=== PATIENT | female | born 1990 | race Caucasian/White ===

== ENCOUNTER 2017-03-15 15:07 | Emergency (ER) | payer SELFPAY ==
[~2017-03-15 15:07] MED LIST: ALPR0.5T8 PO; HYDR-4446 PO
--- NOTE | 2017-03-15 15:37 | NUR ---
PATIENT LWBS PRIOR TO TRIAGE.
== END 2017-03-15 15:37 | disposition left against medical advice (07) ==
LOC: MED 15:07
DX: R68.89 Other general symptoms and signs (principal); Z53.21 Procedure and treatment not carried out due to patient leaving prior to being seen by health care provider

== ENCOUNTER 2017-03-15 15:43 | Emergency (ER) | payer SELFPAY ==
--- NOTE | 2017-03-15 16:16 | NUR ---
PATIENT LWBS AGAIN
== END 2017-03-15 16:16 | disposition left against medical advice (07) ==
LOC: MED 15:43
DX: F19.20 Other psychoactive substance dependence, uncomplicated (principal); Z53.21 Procedure and treatment not carried out due to patient leaving prior to being seen by health care provider

== ENCOUNTER 2017-11-29 13:09 | Emergency (ER) | payer SELFPAY ==
[~2017-11-29] VITALS: Ht 154.9 cm; Wt 50.8 kg
[~2017-11-29 13:09] MED LIST changes: +ACET-8386 PO; -HYDR-4446 PO
[2017-11-29 13:19] VITALS: BP 118/71
--- NOTE | 2017-11-29 13:23 | NUR ---
PT AMBULATED TO [facility]
--- NOTE | 2017-11-29 13:30 | NUR ---
27/F presents to ED c/o painful urination and lower abd cramping starting this morning. Denies N/V/D. Pt states she started her menstrual cycle today. VSS.
--- NOTE | 2017-11-29 14:01 | NUR ---
Patient being evaluated by Dr. Hidalgo in chair C.
[2017-11-29] MEDS ORDERED: traMADol 50 MG TAB PO ONE (14:05)
--- NOTE | 2017-11-29 14:20 | NUR ---
Pt is requesting to get a prescription for [place]. Pt states "I've taken Tramadol before and it doesn't help." Dr. Hidalgo made aware. No prescription for [place] will be given to the patient at this time. Patient made aware and verbalized understanding.
[2017-11-29 14:22] VITALS: BP 118/71
--- NOTE | 2017-11-29 14:22 | NUR ---
Patient discharged with v/s stable. Written and verbal after care instructions given and explained. Patient alert, oriented and verbalized understanding of instructions. Ambulatory with steady gait. All questions addressed prior to discharge. ID band removed. Patient advised to follow up with PMD. Rx of Tramadol 50mg and Cephalexin 500mg given. Patient educated on indication of medication including possible reaction and side effects. Opportunity to ask questions provided and answered.
== END 2017-11-29 14:22 | disposition home or self-care (01) ==
LOC: MED 13:09
DX: N39.0 Urinary tract infection, site not specified (principal); N94.6 Dysmenorrhea, unspecified; Z79.899 Other long term (current) drug therapy; Z88.8 Allergy status to other drugs, medicaments and biological substances
CPT/HCPCS: 81002; 81025; 99283

== ENCOUNTER 2021-02-04 01:39 | Inpatient (IN) | payer OTHER, SELFPAY ==
[~2021-02-04] VITALS: Ht 154.9 cm; Wt 54.4 kg
[2021-02-04 01:41] VITALS: BP 82/58
--- NOTE | 2021-02-04 01:52 | NUR ---
Patient ambualted to bed 12 with steady gait.
--- NOTE | 2021-02-04 02:05 | NUR ---
30 YO/F BIB SELF, ACCOMPANIED BY , W C/O ABDOMINAL/PELVIC PAIN LEVEL 10/10 THAT FEELS LIKE SHE IS "BEING CUT" AND VOMITING X 3 MONTHS. PATIENT REPORTS BLOOD +CLOTS IN STOOL AND BLOOD STREAKS IN VOMIT. PATIENT REPORTS BOWEL MOVEMENTS ARE SMALL AND BLACK OR WHITE. LBM YESTERDAY, BOWEL SOUNDS PRESENT THROUGHOUT ALL QUADRANT. PATIENT REPORTS VOMIT IS "CHUNKY, CHALKY/ESTRADA." PATIENT REPORTS EXPERIENCING A "SOUR TASTE." PATIENT REPORTS EPISODES OF PASSING OUT AFTER EATING/VOMITING. PATIENT REPORTS EPISODES OF TEMPORARY MEMORY LOSS, DISORIENTATION, FATIGUE, DIZZYNESS AND SEEING BLACK SPOTS IN VISION. PATIENT REPORTS A "PRESSURE HEADACHE," BODY ACHES, NUMBNESS AND WEAKNESS TO ALL EXTREMETIES, AND GENERALIZED BRUISING W/O INJURY. GENERALIZED BRUISING NOTED. PATIENT IS AOX4. PATIENT IS SITTING IN BED LOCKED IN LOWEST POSITION, X1 SIDE RAIL UP. AT BEDSIDE. 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
[2021-02-04] MEDS: NACL 0.9% 1,000 ML IV ONE ×2 (02:20→07:46)
[2021-02-04] MEDS ORDERED: PANTOPRAZOLE 40 MG INJ VIAL IVP ONE (02:20)
--- NOTE | 2021-02-04 02:30 | NUR ---
Lab at bedside collecting blood and cultures.
[2021-02-04 02:43] LABS: BASOPHILS # (AUTO) 0.1 K/uL (0.00-0.22); BASOPHILS % (AUTO) 0.4 % (0.0-2.0); EOSINOPHILS # (AUTO) 0.2 K/uL (0-0.4); EOSINOPHILS % (AUTO) 1.6 % (0.0-4.0); HEMATOCRIT 41.4 % (36-48); LYMPHOCYTES # (AUTO) 2.7 K/uL (2.5-16.5); LYMPHOCYTES % (AUTO) 21.4 % (20.5-51.1); MEAN CORPUSCULAR HEMOGLOBIN 32 pg (27-31); MEAN CORPUSCULAR HGB CONC 34 g/dL (33-37); MEAN CORPUSCULAR VOLUME 94.3 fL (80-94); MONOCYTES # (AUTO) 0.9 K/uL (0.8-1.0); MONOCYTES % (AUTO) 7.5 % (1.7-9.3); NEUTROPHILS # (AUTO) 8.6 K/uL (1.8-7.7); NEUTROPHILS % (AUTO) 69.1 % (42.2-75.2); PLATELET COUNT (AUTO) 366 K/uL (140-450); RED BLOOD CELL COUNT(AUTO) 4.39 MIL/uL (4.20-5.40); RED CELL DISTRIBUTION WIDTH 13.9 % (11.6-13.7); WHITE BLOOD COUNT (AUTO) 12.4 K/uL (4.8-10.8)
[2021-02-04] MEDS ORDERED: ONDANSETRON 4 MG/2 ML VIAL IVP ONE (02:45)
[2021-02-04] MEDS ORDERED: MORPHINE SULFATE 4 MG/ML SYR IVP ONE ×2 (02:45→05:45)
[2021-02-04] MEDS ORDERED: NACL 0.9% 1,000 ML IV ONE ×2 (02:45→05:05)
--- NOTE | 2021-02-04 02:57 | NUR ---
MISTY COLLECTED AND WALKED TO LAB.
[2021-02-04 03:01] LABS: ALBUMIN 4.1 g/dL (3.4-5.0); ANION GAP 12.9 (8-16); CARBON DIOXIDE 29.5 mmol/L (21-32); CREATININE 1.4 mg/dL (0.6-1.3); POTASSIUM 3.4 mmol/L (3.5-5.1); TOTAL BILIRUBIN 0.3 mg/dL (0.0-1.0)
--- NOTE | 2021-02-04 03:37 | NUR ---
Female Tablet Making Machine Operator accompanied female patient for Rectal Exam. Patient tolerated procedure well. hemoccult test negative.
--- NOTE | 2021-02-04 03:55 | NUR ---
PATIENT TAKEN TO CT
--- NOTE | 2021-02-04 05:18 | NUR ---
SPOKE W PATIENT ABOUT HAVING A ROSE CATHETER PLACED IN D/T C/O OF PELVIC/BLADDER PAIN AND C/O URINARY RETENTION. PATIENT REPORTS SHE WANTS TO WAIT ON THE ROSE CATHETER AND TRY TO VOID HERSELF. SHIVA MADE AWARE, NO NEW ORDERS AT THIS TIME.
--- NOTE | 2021-02-04 06:26 | NUR ---
Guevara catheter inserted. Patient tolerated procedure well. 50 ML yellow clear urine output.
[2021-02-04] MEDS ORDERED: ALUMINUM HYD/MAG/SIMETHICONE 30 ML, DICYCLOMINE HCL LIQUID 20 MG, LIDOCAINE VISCOUS 2% ... PO ONE ×3 (07:05)
[2021-02-04] MEDS ORDERED: BOWEL EVACUANT DRINK 4,000 ML PDS PO SCH (07:10)
--- NOTE | 2021-02-04 07:14 | NUR ---
REPORT GIVEN TO VIKAS BENSON FOR TRANSFER OF CARE.
[2021-02-04] MEDS ORDERED: HYDROcodone/APAP 5/325 MG 1 TAB TAB PO PRN (07:15)
[2021-02-04] MEDS ORDERED: ZOLPIDEM 5 MG TAB PO PRN (07:15)
[2021-02-04] MEDS ORDERED: KCL 20 MEQ/WATER INJ PREMIX 200 ML IV PRN (07:15)
[2021-02-04] MEDS ORDERED: MAGNESIUM OXIDE 400 MG TAB PO PRN (07:15)
[2021-02-04] MEDS ORDERED: ACETAMINOPHEN 325 MG TAB PO PRN (07:15)
[2021-02-04] MEDS ORDERED: MAG SULF 2000 MG/WATER PREMIX 50 ML IV PRN (07:15)
[2021-02-04] MEDS ORDERED: IBUPROFEN 400 MG TAB PO PRN (07:15)
[2021-02-04] MEDS ORDERED: ONDANSETRON 4 MG/2 ML VIAL IVP PRN (07:15)
[2021-02-04] MEDS ORDERED: POTASSIUM CHLORIDE 10 MEQ TABER PO PRN (07:15)
--- NOTE | 2021-02-04 07:15 | NUR ---
RECEIVED REPORT FROM FRED BEAN FOR TRANSFER OF CARE. PT IS A/O X4 WITH EVEN AND UNLABORED RESPIRATIONS. BED IN LOWEST POSITION, BRAKES LOCKED, X1 SIDERAIL UP.
[2021-02-04] MEDS ORDERED: ALUMINUM HYD/MAG/SIMETHICONE 30 ML UDC ONE (07:18)
[2021-02-04] MEDS ORDERED: LIDOCAINE VISCOUS 2% 20 ML UDC ONE (07:18)
[2021-02-04] MEDS ORDERED: DICYCLOMINE HCL LIQUID 10 MG/5 ML UDC ONE (07:18)
[2021-02-04] MEDS: POTASSIUM CHL 40 MEQ/ D5-1/2NS 1,000 ML IV SCH ×2 (07:59→19:45)
--- NOTE | 2021-02-04 08:23 | NUR ---
RECEIVED REPORT FROM ER NURSE KELLEY PT IS ON ROOM AIR, AMBULATORY WITH ASSIST, SKIN INTACT WITH CHIEF COMPLAIN OF ABDOMINAL /PELVIC PAIN 10/10 X 3 MOS AND VOMITING, BLOOD IN STOOL, NUMBNESS OF HANDS AND FEET, WEAKNESS, NOT ABLE TO URINATE ROSE CATHETER INSERTED FOR URINARY RETENTION, 2L OF BOLUS SODIUM CHLORIDE, 8 MG MORPHINE, 40 MG PROTONIX AND 4 MG ZOFRAN GIVEN AT THE ER. IV INTACT ON RIGHT AC RUNNING A D5 1/2 NS 40 MEQ POTASSIUM CHLORIDE AT 80 MLS/HR PT POTASSIUM IS 3.4.
[2021-02-04 08:24] LABS: BILIRUBIN,URINE NEGATIVE (NEGATIVE); BLOOD, URINE NEGATIVE (NEGATIVE); COLOR,URINE YELLOW (YELLOW); LEUKOCYTE ESTERASE ,URINE NEGATIVE (NEGATIVE); NITRITE, URINE NEGATIVE (NEGATIVE); PH,URINE 5.5 (5.0-9.0); UGLUCOSE NEGATIVE (NEGATIVE)
--- NOTE | 2021-02-04 08:25 | NUR ---
GAVE REPORT TO ANANYA BEAN FOR ADMIT TO [facility] 106B. ETA 15 MINS
[2021-02-04 08:29] LABS: APPEARANCE,URINE CLEAR (CLEAR)
--- NOTE | 2021-02-04 08:44 | NUR ---
Patient will be admitted to care of DR. ANTON GRIGSBY. Admited to [facility]. Will go to room 106B. Belongings list completed. Report to ANANYA BEAN.
[2021-02-04 08:50] VITALS: BP 87/80
--- NOTE | 2021-02-04 08:50 | NUR ---
PATIENT BROUGHT TO THE UNIT VIA WHEELCHAIR, ASSISTED TO BED, CHECK VITAL SIGNS BP 87/80 VT 66 RR 18 TEMP 98.2 OXYGEN SATURATION AT 100%. ORIENTED TO ROOM SAFETY MEASURES IN PLACE AND CALL LIGHT WITHIN REACH. WILL CONTINUE TO MONITOR.
[2021-02-04] MEDS ORDERED: DOCUSATE SODIUM 100 MG GELCAP PO SCH (09:00)
--- NOTE | 2021-02-04 09:02 | NUR ---
PATIENT HAS BEEN SCREENED AND CATEGORIZED HIGH NUTRITION RISK. PATIENT WILL BE SEEN WITHIN 1-2 DAYS OF ADMISSION. 02/04/21-02/05/[address]
--- NOTE | 2021-02-04 09:27 | NUR ---
MEDICATION DUE GIVEN CHECK VITAL SIGNS BP 107/68 TX 75 PATIENT COMPLAINS OF ABDOMINAL PAIN 10/10 AND ANXIETY. NORCO 5/325 MG 1 TAB AND ATIVAN 1 MG TAB GIVEN.
[2021-02-04] MEDS: LORazepam 1 MG TAB PO PRN ×2 (09:28→17:38)
--- NOTE | 2021-02-04 10:11 | NUR ---
DC PLANN[age] YRS OLD FEMALE PATIENT WAS ADMITTED FROM HOME WITH A DX OF COLITIS WITH ACUTE KIDNEY INJURY. PT HAS NO MEDICAL HISTORY. CT ABD/PELVIS SHOWED FLUID DISTENDED SMALL BOWEL WITHOUT PATHOLOGIC DILATATION ORGANIZATION, MILD BOWEL WALL THICKENING. RAPID COVID TEST NEGATIVE. BLOOD CULTURE PENDING. ADMINISTERED IVF AND CONTINUED HOME MEDS. CONSULTED WITH GI DR RUIZ. DC PLAN TO GO HOME WHEN STABLE. CM TO FOLLOW
--- NOTE | 2021-02-04 10:18 | NUR ---
INFORMED DR LANIER PT BLOOD PRESSURE BEEN LOW UPON ADMISSION TO THE UNIT. BP 87/80 MT 66.
[2021-02-04] MEDS ORDERED: MORPHINE SULFATE 4 MG/ML SYR IVP PRN (10:30)
[2021-02-04] MEDS: MORPHINE SULFATE 2 MG/ML SYR IVP PRN ×3 (11:11→19:59)
--- NOTE | 2021-02-04 11:14 | NUR ---
PT STILL COMPLAINS OF ABDOMINAL PAIN 05/30 CHECK VITAL SIGNS BP 106/53 MN 62 MORPHINE 2 MG IVQ 4HRS PRN GIVEN.
--- NOTE | 2021-02-04 11:37 | NUR ---
GOLYTELY 4000 ML GIVEN TO PT PER DRS ORDER.PT TOLERATED WELL
--- NOTE | 2021-02-04 13:36 | NUR ---
02/04/21 RD INITIAL ASSESSMENT COMPLETED PLEASE REFER TO NUTRITION ASSESSMENT UNDER CARE ACTIVITY FOR ESTIMATED NUTRITIONAL NEEDS. 1. CONTINUE NPO MEDICALLY APPROPRIATE 2. IF PT IS NPO OVER 3 DAYS CONSIDER TPN/PPN. 3. RD TO FOLLOW-UP 2-3 DAYS, HIGH RISK 4. IF AND WHEN PT MEDICALLY STABLE, CONSIDER A REGULAR DIET. AUTUMN ASHBY, RD
--- NOTE | 2021-02-04 15:22 | NUR ---
PATIENT COMPLAINS OF PAIN IN THE ABDOMEN 10/10 PAIN MEDICATION GIVEN CHECK VITAL SIGNS PRIOR TO MEDICATION BP 108/62 CA 58.
[2021-02-04 16:00] VITALS: BP 99/66
--- NOTE | 2021-02-04 17:00 | NUR ---
CONSENT FORM SIGNED BY PATIENT MD EXPLAINED COLONOSCOPY AND EGD PROCEDURE . RN WITNESSED AND SIGN .PATIENT VERBAL UNDERSTANDING.
--- NOTE | 2021-02-04 17:24 | NUR ---
URINE SENT TO LAB FOR UDRC. ROSE DISCONTINUE PER MD ORDERED 150 CC YELLOW URINE NOTED PROCEDURE EXPLAINED TO PATIENT AND PATIENT VERBALIZED UNDERSTANDING.
[2021-02-04] MEDS ORDERED: METOCLOPRAMIDE 10 MG/2 ML INJ VIAL IVP SCH (17:30)
[2021-02-04] MEDS ORDERED: MAGNESIUM CITRATE 300 ML BTL PO SCH (17:30)
[2021-02-04] MEDS ORDERED: LACTULOSE 20 GM/30 ML UDC PO SCH (17:30)
[2021-02-04] MEDS ORDERED: SENNA 8.6 MG TAB PO SCH (17:30)
--- NOTE | 2021-02-04 17:30 | NUR ---
MEDICATION DUE GIVEN AND ATIVAN 1 MG GIVEN CHECK VITAL SIGNS PRIOR TO MEDICATION BP 99/66 IN 60.
[2021-02-04 17:47] LABS: BARBITURATE, URINE NEGATIVE ng/ml (NEG <=200); BENZODIAZEPINE, URINE POSITIVE ng/mL (NEG <=200); CANNABINOID, URINE NEGATIVE ng/mL (NEG <=50); COCAINE, URINE NEGATIVE ng/mL (NEG <=300); OPIATE, URINE POSITIVE ng/mL (NEG <=2000); PHENCYCLIDINE SCREEN,URINE NEGATIVE ng/mL (NEG <=25)
--- NOTE | 2021-02-04 19:35 | NUR ---
ENDORSED T9O NIGHT NURSE FOR CONTINUITY OF CARE. PT IS STABLE
--- NOTE | 2021-02-04 19:36 | NUR ---
RECEIVED BEDSIDE REPORT FROM DAY VIKAS SCHAFFER. PT AOX4 ON ROOM AIR. NO S/S RESPIRATORY DISTRESS. HAS SEVERE C/O ABD PAIN. WILL MEDICATE PRN. IV SITE RAC 22G PATENT INTACT INFUSING IVF ORDERED. SAFETY MEASURES IN PLACE. CALL LIGHT WITHIN REACH. WILL CONTINUE TO MONITOR
[2021-02-04 20:00] VITALS: BP 107/76
--- NOTE | 2021-02-04 20:00 | NUR ---
PRN MORPHINE GIVEN FO C/O SEVERE ABD PAIN. EDUCATION PROVIDED. NO DISTRESS NOTED. BED IN LOW POSITION. CALL LIGHT WITHIN REACH. WILL CONTINUE TO MONITOR
--- NOTE | 2021-02-04 20:19 | NUR ---
SCHEDULED MEDICATION GIVEN. EDUCATION PROVIDED. NO DISTRESS NOTED. CALL LIGHT WITHIN REACH. WILL CONTINUE TO MONITOR
[2021-02-04] MEDS ORDERED: AMITRIPTYLINE 25 MG TAB PO SCH (21:00)
--- NOTE | 2021-02-04 21:27 | NUR ---
PATIENT C/O INCREASED ANXIETY. REQUESTING XANAX INSTEAD OF ATIVAN. STATES ATIVAN DOES NOT WORK. AWARE. NEW ORDERS RECEIVED.
[2021-02-04] MEDS: ALPRAZolam 0.5 MG TAB PO PRN (21:52)
--- NOTE | 2021-02-04 21:57 | NUR ---
PRN XANAX GIVEN FOR C/O ANXIETY. EDUCATION PROVIDED. NO DISTRESS NOTED. CALL LIGHT WITHIN REACH. WILL CONTINUE TO MONITOR
[2021-02-05] MEDS: MORPHINE SULFATE 2 MG/ML SYR IVP PRN (00:01)
--- NOTE | 2021-02-05 00:07 | NUR ---
PRN MORPHINE GIVEN FOR C/O SEVERE ABD PAIN. EDUCATION PROVIDED. NO DISTRESS NOTED. BED IN LOW POSITION. CALL LIGHT WITHIN REACH. WILL CONTINUE TO MONITOR
[2021-02-05] MEDS ORDERED: MORPHINE SULFATE 2 MG/ML SYR IVP PRN (00:45)
--- NOTE | 2021-02-05 00:45 | NUR ---
PATIENT C/O ABD PAIN. STATES MORPHINE ISN'T HELPING AND REQUESTING TO INCREASE THE DOSE. MD AWARE. NEW ORDERS RECEIVED
[2021-02-05] MEDS: MORPHINE SULFATE 4 MG/ML SYR IVP PRN ×2 (03:39→07:57)
--- NOTE | 2021-02-05 03:43 | NUR ---
PRN MORPHINE GIVEN FOR C/O SEVERE ABD PAIN. EDUCATION PROVIDED. NO DISTRESS NOTED. BED IN LOW POSITION. CALL LIGHT WITHIN REACH. WILL CONTINUE TO MONITOR
[2021-02-05 04:00] VITALS: BP 102/60
--- NOTE | 2021-02-05 06:05 | NUR ---
PATIENT WISHES TO GO AMA AND LEAVE THE HOSPITAL DUE TO PAIN. STATES THAT MORPHINE IS NOT HELPING AND THAT SHE IS HUNGRY AND WANTS TO GO HOME. STATES SHE FEELS ANXIOUS. EXPLAINED TO PATIENT THE DANGERS OF LEAVING THE HOSPITAL EARLY. INFORMED HER OF THE RISKS AND BENEFITS OF RECEIVING CARE. PATIENT REQUESTS TO CHANGE MORPHINE FREQUENCY TO Q3H. AWARE. AWAITING RESPONSE
[2021-02-05 06:37] LABS: BASOPHILS % (AUTO) 0.5 % (0.0-2.0); EOSINOPHILS # (AUTO) 0.2 K/uL (0-0.4); EOSINOPHILS % (AUTO) 2.7 % (0.0-4.0); HEMATOCRIT 35.8 % (36-48); LYMPHOCYTES # (AUTO) 2.4 K/uL (2.5-16.5); LYMPHOCYTES % (AUTO) 28.1 % (20.5-51.1); MEAN CORPUSCULAR HEMOGLOBIN 32 pg (27-31); MEAN CORPUSCULAR HGB CONC 34 g/dL (33-37); MEAN CORPUSCULAR VOLUME 94.4 fL (80-94); MONOCYTES # (AUTO) 0.7 K/uL (0.8-1.0); MONOCYTES % (AUTO) 8.6 % (1.7-9.3); NEUTROPHILS # (AUTO) 5.2 K/uL (1.8-7.7); NEUTROPHILS % (AUTO) 60.1 % (42.2-75.2); PLATELET COUNT (AUTO) 294 K/uL (140-450); RED BLOOD CELL COUNT(AUTO) 3.79 MIL/uL (4.20-5.40); WHITE BLOOD COUNT (AUTO) 8.6 K/uL (4.8-10.8)
[2021-02-05 06:51] LABS: ALBUMIN 3.6 g/dL (3.4-5.0); ANION GAP 12.9 (8-16); CHOL/HDL RATIO 3.4 (1-4.5); CREATININE 0.6 mg/dL (0.6-1.3); PHOSPHORUS 3.8 mg/dL (2.5-4.9); POTASSIUM 3.9 mmol/L (3.5-5.1); TOTAL BILIRUBIN 0.3 mg/dL (0.0-1.0)
--- NOTE | 2021-02-05 07:30 | NUR ---
ENDORSED PATIENT TO DAY RN FOR CONTINUITY OF CARE. PATIENT IS IN STABLE CONDITION
--- NOTE | 2021-02-05 07:35 | NUR ---
RECEIVED BEDSIDE ENDORSEMENT FROM NIGHTSALFT NURSE FOR CONTINUITY OF CARE.
--- NOTE | 2021-02-05 08:13 | NUR ---
ADMINISTERED PRESCRIBED MEDS FOR PRN 10/10 PAIN PER MD ORDER. PATIENT TOLERATED WELL. MEDICATION EDUCATION PROVIDED. PATIENT VERBALIZED UNDERSTANDING. SAFETY MEASURES IN PLACE. WILL CONTINUE TO MONITOR.
[2021-02-05] MEDS: POTASSIUM CHL 40 MEQ/ D5-1/2NS 1,000 ML IV SCH (08:15)
[2021-02-05] MEDS: ALPRAZolam 0.5 MG TAB PO PRN (09:08)
--- NOTE | 2021-02-05 09:11 | NUR ---
ADMINISTERED PRESCRIBED MEDS FOR PRN ANXIETY ORDERED BY MD. MEDICATION EDUCATION PROVIDED. PATIENT VERBALIZED UNDERSTANDING. PATIENT REQUESTED TO LEAVE AMA, DOES NOT WANT SCHEDULED PROCEDURE FOR TODAY. PATIENT VERBALIZED UNDERSTANDING IN LEAVING AMA. MD TO BE NOTIFIED.
--- NOTE | 2021-02-05 09:30 | NUR ---
PATIENT LEFT AMA. NOTIFIED PCP AND GI MD. REMOVED IV LINE AND ID BAND. PATIENT GATHERED BELONGINGS AND WALKED OUT OF HOSPITAL.
[2021-02-05] MEDS ORDERED: SENNA 8.6 MG TAB PO SCH (21:00)
== END 2021-02-05 09:30 | disposition left against medical advice (07) | DRG 249 ==
LOC: MED 01:39 → MMU 07:18 → MTU 08:16
PROVIDERS: ADMIT Hospitalist; ATTEND Hospitalist
DX: K52.9 Noninfective gastroenteritis and colitis, unspecified (principal); N17.9 Acute kidney failure, unspecified; E87.2 Acidosis; I95.9 Hypotension, unspecified; E86.0 Dehydration; G89.29 Other chronic pain; F41.9 Anxiety disorder, unspecified; E87.6 Hypokalemia; K59.00 Constipation, unspecified; R33.9 Retention of urine, unspecified; Z20.822 Contact with and (suspected) exposure to COVID-19; Z98.891 History of uterine scar from previous surgery; Z79.899 Other long term (current) drug therapy; Z98.51 Tubal ligation status
CPT/HCPCS: 36415; 76856; 80053; 80305; 81003; 82728; 83036; 83540; 83605; 83735; 84100; 84702; 85025; 85384; 85651; 86140; 87040; 87081; 96361; 96374; 96375; 96376; 99285; C9113; J2270; J2405; J2765; J7030

== ENCOUNTER 2021-03-12 23:59 | Emergency (ER) | payer OTHER, SELFPAY ==
[~2021-03-12] VITALS: Ht 154.9 cm; Wt 60.0 kg
[2021-03-13 00:05] VITALS: BP 105/65
--- NOTE | 2021-03-13 00:05 | NUR ---
to bed ambulatory
[2021-03-13] MEDS ORDERED: NACL 0.9% 1,000 ML IV ONE (00:15)
[2021-03-13] MEDS ORDERED: KETOROLAC 30 MG/ML VIAL IVP ONE (00:15)
[2021-03-13] MEDS ORDERED: ONDANSETRON 4 MG/2 ML VIAL IVP ONE (00:15)
[2021-03-13] MEDS ORDERED: NACL 0.9% 500 ML IV ONE (00:20)
--- NOTE | 2021-03-13 00:32 | NUR ---
Dr. Gonzales with pt for MSE
[2021-03-13 00:35] LABS: BASOPHILS # (AUTO) 0.1 K/uL (0.00-0.22); BASOPHILS % (AUTO) 0.6 % (0.0-2.0); EOSINOPHILS # (AUTO) 1.3 K/uL (0-0.4); HEMATOCRIT 36.9 % (36-48); HEMOGLOBIN 12.4 g/dL (12.0-16.0); LYMPHOCYTES # (AUTO) 2.7 K/uL (2.5-16.5); LYMPHOCYTES % (AUTO) 27.5 % (20.5-51.1); MEAN CORPUSCULAR HEMOGLOBIN 32 pg (27-31); MEAN CORPUSCULAR HGB CONC 34 g/dL (33-37); MONOCYTES # (AUTO) 0.8 K/uL (0.8-1.0); MONOCYTES % (AUTO) 7.7 % (1.7-9.3); NEUTROPHILS # (AUTO) 5.1 K/uL (1.8-7.7); NEUTROPHILS % (AUTO) 51.2 % (42.2-75.2); PLATELET COUNT (AUTO) 316 K/uL (140-450); RED BLOOD CELL COUNT(AUTO) 3.92 MIL/uL (4.20-5.40); RED CELL DISTRIBUTION WIDTH 13.7 % (11.6-13.7)
--- NOTE | 2021-03-13 00:35 | NUR ---
Female Automotive Service Assistant accompanied female patient for Pelvic Exam and Rectal Exam.
[2021-03-13 00:43] LABS: ANION GAP 18.1 (8-16); CARBON DIOXIDE 26.4 mmol/L (21-32); CREATININE 1.5 mg/dL (0.6-1.3); POTASSIUM 3.5 mmol/L (3.5-5.1)
[2021-03-13 00:49] LABS: ALBUMIN 3.7 g/dL (3.4-5.0); TOTAL BILIRUBIN 0.3 mg/dL (0.0-1.0)
[2021-03-13] MEDS ORDERED: ONDANSETRON 4 MG/2 ML VIAL IM ONE (00:50)
[2021-03-13] MEDS ORDERED: KETOROLAC 30 MG/ML VIAL IM ONE (00:50)
[2021-03-13] MEDS ORDERED: NALOXONE PFS 2 MG/2 ML SYR ONE (00:51)
--- NOTE | 2021-03-13 01:11 | NUR ---
NARCAN 2MG PULLED FOR EMERGENCY FOR ANOTHER PATIENT.
[2021-03-13 01:22] LABS: APPEARANCE,URINE SL CLOUDY (CLEAR); BILIRUBIN,URINE NEGATIVE (NEGATIVE); BLOOD, URINE NEGATIVE (NEGATIVE); COLOR,URINE YELLOW (YELLOW); LEUKOCYTE ESTERASE ,URINE NEGATIVE (NEGATIVE); NITRITE, URINE NEGATIVE (NEGATIVE); PH,URINE 5.5 (5.0-9.0); UGLUCOSE NEGATIVE (NEGATIVE)
[2021-03-13] MEDS ORDERED: MAGNESIUM CITRATE 300 ML BTL PO ONE (01:25)
[2021-03-13 01:35] LABS: BARBITURATE, URINE NEGATIVE ng/ml (NEG <=200); BENZODIAZEPINE, URINE POSITIVE ng/mL (NEG <=200); CANNABINOID, URINE NEGATIVE ng/mL (NEG <=50); COCAINE, URINE NEGATIVE ng/mL (NEG <=300); OPIATE, URINE POSITIVE ng/mL (NEG <=2000); PHENCYCLIDINE SCREEN,URINE NEGATIVE ng/mL (NEG <=25)
[2021-03-13 01:55] VITALS: BP 111/67
--- NOTE | 2021-03-13 02:01 | NUR ---
pt continually requesting for narcotics for her pain, I explained to pt that we cannot give narcotics at this time due to her severe constipation and explained the side effects narcotics give is constipation. pt continually states, " you're just a fucking nurse, let me talk to the doctor." Dr. Gonzales made aware.
--- NOTE | 2021-03-13 02:03 | NUR ---
Dr. Gonzales at bedside to explain to patient rationale of being unable to give narcotics at this time. pt continually uses profane language at me and the doctor. she then stated that she is going to elope .
--- NOTE | 2021-03-13 02:20 | NUR ---
PATIENT ELOPED FROM FACILITY. DISCHARGE INSTRUCTIONS NOT GIVEN TO PATIENT. DR. LEON NOTIFIED.
== END 2021-03-13 02:20 | disposition left against medical advice (07) ==
LOC: MED 23:59
DX: K62.89 Other specified diseases of anus and rectum (principal)
CPT/HCPCS: 36415; 74176; 80053; 80305; 81003; 84703; 85025; 96372; 99284; J1885; J2405; J2310

== ENCOUNTER 2021-03-30 00:12 | Emergency (ER) | payer OTHER ==
[~2021-03-30] VITALS: Ht 157.5 cm; Wt 56.7 kg
[2021-03-30 00:17] VITALS: BP 113/64
[2021-03-30] MEDS ORDERED: MAGNESIUM HYDROXIDE 2400 MG/30 ML UDC PO ONE (01:15)
[2021-03-30] MEDS ORDERED: ONDANSETRON 4 MG ODT PO ONE ×2 (01:15→02:00)
[2021-03-30] MEDS ORDERED: MORPHINE SULFATE 4 MG/ML SYR IM ONE (02:00)
[2021-03-30 02:10] LABS: APPEARANCE,URINE CLEAR (CLEAR); BASOPHILS # (AUTO) 0.1 K/uL (0.00-0.22); BASOPHILS % (AUTO) 0.7 % (0.0-2.0); BILIRUBIN,URINE 1+ (NEGATIVE); BLOOD, URINE NEGATIVE (NEGATIVE); COLOR,URINE YELLOW (YELLOW); EOSINOPHILS # (AUTO) 0.7 K/uL (0-0.4); EOSINOPHILS % (AUTO) 5.9 % (0.0-4.0); HEMOGLOBIN 11.9 g/dL (12.0-16.0); LEUKOCYTE ESTERASE ,URINE NEGATIVE (NEGATIVE); LYMPHOCYTES # (AUTO) 2.6 K/uL (2.5-16.5); LYMPHOCYTES % (AUTO) 22.9 % (20.5-51.1); MEAN CORPUSCULAR HEMOGLOBIN 32 pg (27-31); MEAN CORPUSCULAR HGB CONC 33 g/dL (33-37); MEAN CORPUSCULAR VOLUME 95.2 fL (80-94); MONOCYTES # (AUTO) 0.8 K/uL (0.8-1.0); MONOCYTES % (AUTO) 6.8 % (1.7-9.3); NEUTROPHILS # (AUTO) 7.4 K/uL (1.8-7.7); NEUTROPHILS % (AUTO) 63.7 % (42.2-75.2); NITRITE, URINE NEGATIVE (NEGATIVE); PH,URINE 5.5 (5.0-9.0); PLATELET COUNT (AUTO) 291 K/uL (140-450); RED BLOOD CELL COUNT(AUTO) 3.77 MIL/uL (4.20-5.40); RED CELL DISTRIBUTION WIDTH 13.5 % (11.6-13.7); UGLUCOSE NEGATIVE (NEGATIVE); WHITE BLOOD COUNT (AUTO) 11.5 K/uL (4.8-10.8)
[2021-03-30 02:23] LABS: RBC,URINE NONE SEEN /HPF (0-5); WBC,URINE 0-5 /HPF (0-5)
[2021-03-30 02:27] LABS: ALBUMIN 4.2 g/dL (3.4-5.0); ANION GAP 15.1 (8-16); CARBON DIOXIDE 24.4 mmol/L (21-32); CREATININE 1.1 mg/dL (0.6-1.3); MAGNESIUM 2.2 mg/dL (1.8-2.4); POTASSIUM 4.5 mmol/L (3.5-5.1); TOTAL BILIRUBIN 0.1 mg/dL (0.0-1.0)
[2021-03-30 02:50] VITALS: BP 113/64
== END 2021-03-30 02:51 | disposition home or self-care (01) ==
LOC: MED 00:12
DX: K59.00 Constipation, unspecified (principal); F17.210 Nicotine dependence, cigarettes, uncomplicated
CPT/HCPCS: 36415; 80053; 81001; 81025; 83690; 83735; 84100; 85025; 87086; 96372; 99284; J2270; Q0162

== ENCOUNTER 2021-05-05 23:08 | Observation (INO) | payer OTHER, SELFPAY ==
[~2021-05-05] VITALS: Ht 157.5 cm; Wt 56.7 kg
[2021-05-05 23:25] VITALS: BP 124/60
--- NOTE | 2021-05-05 23:28 | NUR ---
TO LOBBY A/W BED AMBULATORY
--- NOTE | 2021-05-06 00:08 | NUR ---
LOWER ABD PAIN RADIATING TO HER LOW BACK FOR A MONTH, H/A. HAS N/V. PATIENT VISITED URGENT CARE X3 DAYS AGO DUE TO THE SAME PAIN. HAS HAD 3 KIDS. 10/ SHARP PAIN THAT "FEELS LIKE IN LABOR", RADIATING TO LOWER BACK AND HEAD. AAOX4. VSS. PMH: ENDOMETRIOSIS, ACID REFLUX, CYST REMOVAL ON OVARY, TUBAL LIGATION NKA
--- NOTE | 2021-05-06 00:17 | NUR ---
Dr. Pimentel examining patient.
[2021-05-06] MEDS ORDERED: MORPHINE SULFATE 4 MG/ML SYR IVP ONE ×2 (00:20→01:50)
[2021-05-06] MEDS ORDERED: ONDANSETRON 4 MG/2 ML VIAL IVP ONE (00:20)
[2021-05-06 00:48] LABS: WHITE BLOOD COUNT (AUTO) 11.5 K/uL (4.8-10.8)
[2021-05-06 00:49] LABS: ALBUMIN 3.8 g/dL (3.4-5.0); BASOPHILS % (AUTO) 0.4 % (0.0-2.0); CARBON DIOXIDE 28.6 mmol/L (21-32); EOSINOPHILS % (AUTO) 1.5 % (0.0-4.0); HEMATOCRIT 37.4 % (36-48); HEMOGLOBIN 12.2 g/dL (12.0-16.0); LYMPHOCYTES % (AUTO) 20.9 % (20.5-51.1); MEAN CORPUSCULAR HEMOGLOBIN 31 pg (27-31); MEAN CORPUSCULAR HGB CONC 33 g/dL (33-37); MEAN CORPUSCULAR VOLUME 95.3 fL (80-94); MONOCYTES % (AUTO) 6.5 % (1.7-9.3); NEUTROPHILS # (AUTO) 8.1 K/uL (1.8-7.7); NEUTROPHILS % (AUTO) 70.7 % (42.2-75.2); PLATELET COUNT (AUTO) 383 K/uL (140-450); POTASSIUM 3.6 mmol/L (3.5-5.1); RED BLOOD CELL COUNT(AUTO) 3.93 MIL/uL (4.20-5.40); RED CELL DISTRIBUTION WIDTH 13.5 % (11.6-13.7); TOTAL BILIRUBIN 0.3 mg/dL (0.0-1.0)
[2021-05-06 00:50] LABS: BASOPHILS # (AUTO) 0.1 K/uL (0.00-0.22); EOSINOPHILS # (AUTO) 0.2 K/uL (0-0.4); LYMPHOCYTES # (AUTO) 2.4 K/uL (2.5-16.5); MONOCYTES # (AUTO) 0.8 K/uL (0.8-1.0)
--- NOTE | 2021-05-06 00:50 | NUR ---
ultrasound at bedside
[2021-05-06 01:03] LABS: APPEARANCE,URINE CLOUDY (CLEAR); BILIRUBIN,URINE NEGATIVE (NEGATIVE); BLOOD, URINE 3+ (NEGATIVE); COLOR,URINE DARK YELLOW (YELLOW); LEUKOCYTE ESTERASE ,URINE TRACE (NEGATIVE); NITRITE, URINE POSITIVE (NEGATIVE); PH,URINE 5.5 (5.0-9.0); UGLUCOSE NEGATIVE (NEGATIVE)
[2021-05-06 01:23] LABS: RBC,URINE TOO NUMEROUS TO COUN /HPF (0-5)
[2021-05-06] MEDS ORDERED: LORazepam 2 MG/ML VIAL IVP ONE (03:05)
--- NOTE | 2021-05-06 03:24 | NUR ---
PATIENT AMBULATED TO THE BATHROOM
--- NOTE | 2021-05-06 03:31 | NUR ---
PATIENT HAD FOOD DELIVERED, CURRENTLY AT BEDSIDE.
[2021-05-06] MEDS ORDERED: ACETAMINOPHEN 325 MG TAB PO PRN (03:40)
[2021-05-06] MEDS ORDERED: ONDANSETRON 4 MG/2 ML VIAL IVP PRN (03:40)
[2021-05-06] MEDS: NACL 0.9% 1,000 ML IV SCH ×3 (03:40→08:41)
[2021-05-06] MEDS ORDERED: MAGNESIUM OXIDE 400 MG TAB PO PRN (03:40)
[2021-05-06] MEDS ORDERED: MAG SULF 2000 MG/WATER PREMIX 50 ML IV PRN (03:40)
[2021-05-06] MEDS ORDERED: POTASSIUM CHLORIDE 10 MEQ TABER PO PRN (03:40)
[2021-05-06] MEDS ORDERED: KCL 20 MEQ/WATER INJ PREMIX 200 ML IV PRN (03:40)
--- NOTE | 2021-05-06 03:40 | NUR ---
attached patient back on the monitor. safety measures are in place, will continue to monitor patient.
[2021-05-06] MEDS: HYDROcodone/APAP 5/325 MG 1 TAB TAB PO PRN ×3 (04:42→17:15)
--- NOTE | 2021-05-06 04:52 | NUR ---
Patient appears to be resting comfortably in bed- semi fowlers. Vital Signs within normal limits. Respirations even and unlabored.
[2021-05-06] MEDS: MORPHINE SULFATE 4 MG/ML SYR IVP PRN ×2 (06:04→11:21)
--- NOTE | 2021-05-06 06:09 | NUR ---
patient ambulated to the bathroom
--- NOTE | 2021-05-06 07:19 | NUR ---
Pt report given to Doug BEAN. Transfer of care at this time.
--- NOTE | 2021-05-06 07:19 | NUR ---
Report and continuation of care received from VIKAS Pedroza.
[2021-05-06] MEDS ORDERED: ZOLP10TA1 PO (07:27)
[2021-05-06] MEDS ORDERED: ALPR1TAB2 PO (07:27)
[2021-05-06] MEDS ORDERED: LEVO500T98 PO (07:27)
--- NOTE | 2021-05-06 07:37 | NUR ---
Report given to VIKAS Lackey. advised ETA 5-10 min
--- NOTE | 2021-05-06 07:38 | NUR ---
RECEIVED REPORT FROM ER NURSE FOR TRANSFER. AWAITING PT ARRIVAL.
--- NOTE | 2021-05-06 07:50 | NUR ---
Patient will be admitted to care of Dr. Mcelroy. Admited to Med-Surg. Will go to room 104A. Belongings list completed. Report to Darya/VIKAS Obrien.
--- NOTE | 2021-05-06 07:50 | NUR ---
PT HAS ARRIVED TO UNIT VIA WHEELCHAIR. PT AMBULATED TO BED, GAIT WAS STEADY. A&OX4, AWAKE AND ALERT. ON RA WITH BREATHING UNLABORED. SKIN IS WARM, DRY, AND INTACT. IV IS IN THE LEFT AC 20 GAUGE RUNNING NS AT 80 ML PER HOUR PER ORDER. PT IS STABLE AT THIS TIME. WILL CONTINUE TO MONITOR.
[2021-05-06 08:00] VITALS: BP 96/60
--- NOTE | 2021-05-06 08:30 | NUR ---
ADMINISTERED NORCO PRN FOR PAIN 6/10 IN ABDOMEN. MEDICATION EDUCATION WAS PROVIDED AND PT VERBALIZED UNDERSTANDING. WILL REASSESS IN 1 HOUR.
--- NOTE | 2021-05-06 08:44 | NUR ---
PT REFUSED IV FLUIDS. PT STATES "FEELS SWOLLEN WITH TOO MUCH FLUID". ASSESSED PT, NO SWELLING NOTED IN EXTREMITIES OR TRUNK OF BODY. EDUCATION WAS PROVIDED ON IMPORTANCE OF FLUID THERAPY ORDERED BY MD. PA VERBALIZED UNDERSTANDING AND STILL REFUSED FLUIDS.
--- NOTE | 2021-05-06 09:30 | NUR ---
PT IS UP TO THE SHOWER. NO DISTRESS NOTED. PT IS ON RA WITH BREATHING UNLABORED. GAIT IS STEADY, AMBULATING INDEPENDENTLY. WILL MONITOR.
--- NOTE | 2021-05-06 10:00 | NUR ---
PT IS BACK FROM THE SHOWER. PT IS STABLE. NO DISTRESS NOTED.
--- NOTE | 2021-05-06 11:21 | NUR ---
PT STATES SHE HAS PAIN IN HER ABDOMEN AT A SCALE OF 10/10. PT STATES THE PAIN ACHING IN CHARACTERISTIC. PT WAS GIVEN MORPHINE FOR PAIN. BP WAS 109/70 PRIOR TO ADMINISTRATION OF MEDICATION. WILL CONTINUE TO MONITOR PAIN.
--- NOTE | 2021-05-06 13:00 | NUR ---
PT STATES SHE IS STILL HAVING PAIN UNRELIEVED BY MORPHINE. INFORMED DR. CARREON VIA TEXT MESSAGE ABOUT THIS AND THAT THE PT IS REQUESTING A PO MED INSTEAD OF IV. DR. CARREON ORDERED PERCOCET 5 MG PO Q 6HR FOR SEVERE PAIN. WILL ADMINISTER ONCE VERIFIED.
[2021-05-06] MEDS: oxyCODONE/APAP 5/325 MG 1 TAB TAB PO PRN ×2 (13:29→19:59)
--- NOTE | 2021-05-06 13:29 | NUR ---
PT STATES SHE IS STILL HAVING PAIN IN THE ABDOMEN AT A SCALE OF 8/10, UNRELIEVED BY MORPHINE. PT WAS GIVEN PERCOCET ORDERED FOR SEVERE PAIN. BP WAS 109/92 PRIOR TO ADMINISTRATION OF MEDICATION. WILL MONITOR FOR PAIN.
--- NOTE | 2021-05-06 15:30 | NUR ---
ROUNDED ON PT. NO DISTRESS NOTED. BREATHING IS UNLABORED ON RA. PT IS AMBULATORY IN OWN CLOTHING. PT DOES NOT WANT TO WEAR GOWN. PT IS STABLE.
--- NOTE | 2021-05-06 15:56 | NUR ---
PATIENT HAS BEEN SCREENED AND CATEGORIZED LOW NUTRITION RISK. PATIENT WILL BE SEEN WITHIN 7 DAYS OF ADMISSION. 05/12/[address]
[2021-05-06 16:00] VITALS: BP 110/71
--- NOTE | 2021-05-06 17:15 | NUR ---
PT STATES SHE IS HAVING PAIN IN THE ABDOMEN AT A SCALE OF 6/10. PT WAS GIVEN NORCO FOR PAIN. WILL MONITOR PAIN.
--- NOTE | 2021-05-06 19:20 | NUR ---
RECD. RESTING IN BED, AWAKE, A/OX4. RESPIRATION EVEN AND UNLABORED. IV SALINE LOCK AT THE LEFT AC G 20, PATENT AND INTACT. INDEPENDENT, AMBULATORY TO THE BR. ANXIOUS, VERBALIZED THAT SHE IS GOING HOME TONIGHT, THE OB DOCTOR CAME AND GIVE HER A CARD AND THAT SHE WILL HAVE HAVE HYSTERECTOMY IN TWO DAYS OUT PATIENT. CALLING CARD HAS THE NAME OF DR. JIM DINERO MD. ALSO CLAIMED THAT HER MD IN [place] WILL CALL HER PHARMACY FOR PERCOCET THAT SHE CAN TAKE AT HOME WHILE WAITING FOR HER SCHEDULED SURGERY. EXPLAINED TO THE PATIENT THAT THERE IS NO ORDER FOR DISCHARGE AND WE CANNOT SENT ANY PRESCRIPTION TO HER PHARMACY. COMPLAINT OF ABDOMINAL MÉNDEZ 06/29. WILL MEDICATE PER MD ORDER.
--- NOTE | 2021-05-06 20:40 | NUR ---
SPOKE WITH DR. RODRIGUEZ PATIENT IS VERY INSISTENT TO GO HOME TONIGHT BECAUSE DR. JIM DINERO SPOKE TO HER THAT SHE CAN FOLLOW UP IN THE CLINIC OUT PATIENT. PATIENT ALSO WANTS A PRESCRIPTION FOR PERCOCET WHILE WAITING FOR HER SCHEDULE FOR SURGERY.
--- NOTE | 2021-05-06 20:41 | NUR ---
INFORMED DR. CARREON THAT DR. RODRIGUEZ CLEARS PATIENT FOR DISCHARGE TONIGHT. PATIENT SPOKE TO DR. CARREON AND PATIENT AGREED TO COMEBACK TOMORROW MORNING AT 0900 TO PRODUCE MANAGER PRESCRIPTION FOR PERCOCET IN THE NURSES STATION.
[2021-05-06 20:42] VITALS: BP 103/71
--- NOTE | 2021-05-06 21:00 | NUR ---
IV TAKEN OUT. PATIENT CHANGED INTO HER CLOTHES AND GATHER ALL BELONGINGS.
--- NOTE | 2021-05-06 21:25 | NUR ---
OFFERED TO RIDE ON A W/C TO GO TO HOSPITAL LOBBY BUT PATIENT REFUSED. DISCHARGED IN STABLE CONDITION TO WAITING PRIVATE VEHICLE WITH . ACCOMPANIED TO WALK FROM ROOM TO LOBBY.
[2021-05-07] MEDS ORDERED: PANTOPRAZOLE 40 MG TABEC PO SCH (09:00)
== END 2021-05-06 21:25 | disposition home or self-care (01) ==
LOC: MED 23:08 → MMU 05-06 03:41 → MTU 05-06 05:54
PROVIDERS: ADMIT Internal Medicine; ATTEND Internal Medicine
DX: N80.9 Endometriosis, unspecified (principal); K21.9 Gastro-esophageal reflux disease without esophagitis; F41.0 Panic disorder [episodic paroxysmal anxiety]; Z20.822 Contact with and (suspected) exposure to COVID-19; Z79.899 Other long term (current) drug therapy
CPT/HCPCS: 36415; 76856; 80053; 81001; 85025; 87086; 87426; 96374; 96375; 96376; 99284; G0378; J2060; J2270; J2405; 99285

== ENCOUNTER 2021-05-10 01:21 | Emergency (ER) | payer OTHER, SELFPAY ==
[~2021-05-10] VITALS: Ht 157.5 cm; Wt 54.4 kg
[~2021-05-10 01:21] MED LIST changes: -ACET-8386 PO; -ALPR0.5T8 PO; +ALPR1TAB2 PO; +LEVO500T98 PO; +ZOLP10TA1 PO
[2021-05-10 01:30] VITALS: BP 141/90
--- NOTE | 2021-05-10 01:33 | NUR ---
TO LOBBY A/W BED AMBULATORY
[2021-05-10 07:03] VITALS: BP 141/90
--- NOTE | 2021-05-10 07:03 | NUR ---
PATIENT LEFT WITHOUT BEING SEEN BY . NO FURTHER CARE PROVIDED FOR PATIENT.
== END 2021-05-10 07:03 | disposition left against medical advice (07) ==
LOC: MED 01:21
DX: R10.9 Unspecified abdominal pain (principal); Z53.21 Procedure and treatment not carried out due to patient leaving prior to being seen by health care provider
CPT/HCPCS: 81002; 81025

== ENCOUNTER 2021-09-11 21:55 | Emergency (ER) | payer OTHER ==
[~2021-09-11] VITALS: Ht 154.9 cm; Wt 56.7 kg
[~2021-09-11 21:55] MED LIST changes: +LEVO-315 PO; -LEVO500T98 PO
[2021-09-11 22:01] VITALS: BP 111/74
--- NOTE | 2021-09-11 22:04 | NUR ---
TO LOBBY A/W BED VIA W/C
[2021-09-11] MEDS ORDERED: KETOROLAC 30 MG/ML VIAL IM ONE (23:20)
[2021-09-11] MEDS ORDERED: ONDANSETRON 4 MG ODT PO ONE (23:20)
[2021-09-11] MEDS ORDERED: HYDROcodone/APAP 5/325 MG 1 TAB TAB PO ONE (23:20)
[2021-09-11 23:26] LABS: BASOPHILS % (AUTO) 0.5 % (0.0-2.0); EOSINOPHILS % (AUTO) 0.7 % (0.0-4.0); HEMATOCRIT 37.2 % (36-48); HEMOGLOBIN 12.6 g/dL (12.0-16.0); LYMPHOCYTES # (AUTO) 2.1 K/uL (2.5-16.5); LYMPHOCYTES % (AUTO) 31.4 % (20.5-51.1); MEAN CORPUSCULAR HEMOGLOBIN 30 pg (27-31); MEAN CORPUSCULAR HGB CONC 34 g/dL (33-37); MEAN CORPUSCULAR VOLUME 87.8 fL (80-94); MONOCYTES # (AUTO) 0.5 K/uL (0.8-1.0); MONOCYTES % (AUTO) 7.6 % (1.7-9.3); NEUTROPHILS # (AUTO) 3.9 K/uL (1.8-7.7); NEUTROPHILS % (AUTO) 59.8 % (42.2-75.2); PLATELET COUNT (AUTO) 272 K/uL (140-450); RED BLOOD CELL COUNT(AUTO) 4.23 MIL/uL (4.20-5.40); RED CELL DISTRIBUTION WIDTH 14.5 % (11.6-13.7); WHITE BLOOD COUNT (AUTO) 6.6 K/uL (4.8-10.8)
--- NOTE | 2021-09-11 23:39 | NUR ---
US AT BEDSIDE.
[2021-09-11 23:45] LABS: ALBUMIN 4.2 g/dL (3.4-5.0); CARBON DIOXIDE 27.3 mmol/L (21-32); CREATININE 0.8 mg/dL (0.6-1.3); POTASSIUM 3.3 mmol/L (3.5-5.1); TOTAL BILIRUBIN 0.3 mg/dL (0.0-1.0)
--- NOTE | 2021-09-11 23:50 | NUR ---
30 yo f bib self with c/c of 10/10 lower abd pain and migraine x3 days. pt states she has endometriosis and while menstruating she has this pain. pt states she usually takes strong medication for pain during her menstrual cycle. pt is in stable condition, vss. pt locked in lowest position, side rails x2 for safety and given extra blanket. hx:endometriosis nkda
--- NOTE | 2021-09-12 00:15 | NUR ---
pt given apple juice and water to encourage urination for urine sample.
[2021-09-12] MEDS ORDERED: POTASSIUM CHLORIDE 10 MEQ TABER PO ONE ×2 (00:25→00:40)
--- NOTE | 2021-09-12 00:35 | NUR ---
pt in rr for urine sample.
[2021-09-12] MEDS ORDERED: ACET-2619 PO (01:04)
[2021-09-12] MEDS ORDERED: MORPHINE SULFATE 4 MG/ML SYR IM ONE (01:05)
[2021-09-12] MEDS ORDERED: ACET-8386 PO (01:22)
[2021-09-12 01:28] VITALS: BP 105/71
--- NOTE | 2021-09-12 01:28 | NUR ---
Patient discharged with v/s stable. Written and verbal after care instructions given and explained. Patient alert, oriented and verbalized understanding of instructions. Ambulatory with steady gait. All questions addressed prior to discharge. ID band removed. Patient advised to follow up with PMD. Rx of norco and acetaminophen given. Patient educated on indication of medication including possible reaction and side effects. Opportunity to ask questions provided and answered.
== END 2021-09-12 01:28 | disposition home or self-care (01) ==
LOC: MED 21:55
DX: R10.2 Pelvic and perineal pain (principal); E87.6 Hypokalemia; N83.201 Unspecified ovarian cyst, right side; N83.202 Unspecified ovarian cyst, left side; K21.9 Gastro-esophageal reflux disease without esophagitis; F41.9 Anxiety disorder, unspecified; Z79.899 Other long term (current) drug therapy
CPT/HCPCS: 36415; 76856; 80053; 81002; 81025; 85025; 96372; 99284; J2270; Q0092; Q0162; J1885

== ENCOUNTER 2021-09-14 22:05 | Emergency (ER) | payer OTHER ==
[~2021-09-14] VITALS: Ht 154.9 cm; Wt 54.4 kg
[~2021-09-14 22:05] MED LIST changes: +ACET-2619 PO; +ACET-8386 PO
[2021-09-14 22:19] VITALS: BP 98/62
--- NOTE | 2021-09-14 22:22 | NUR ---
to lobby a/w bed via w/c
--- NOTE | 2021-09-14 22:47 | NUR ---
Dr. Frankel examining patient.
[2021-09-14] MEDS ORDERED: KETOROLAC 30 MG/ML VIAL IVP ONE (23:05)
[2021-09-14] MEDS ORDERED: NACL 0.9% 1,000 ML IV ONE (23:05)
[2021-09-14] MEDS ORDERED: ONDANSETRON 4 MG/2 ML VIAL IVP ONE (23:05)
[2021-09-14 23:47] LABS: BASOPHILS # (AUTO) 0.1 K/uL (0.00-0.22); EOSINOPHILS # (AUTO) 0.1 K/uL (0-0.4); EOSINOPHILS % (AUTO) 1.1 % (0.0-4.0); HEMATOCRIT 39.1 % (36-48); HEMOGLOBIN 13.3 g/dL (12.0-16.0); LYMPHOCYTES # (AUTO) 2.5 K/uL (2.5-16.5); LYMPHOCYTES % (AUTO) 36.8 % (20.5-51.1); MEAN CORPUSCULAR HEMOGLOBIN 30 pg (27-31); MEAN CORPUSCULAR HGB CONC 34 g/dL (33-37); MEAN CORPUSCULAR VOLUME 87.7 fL (80-94); MONOCYTES # (AUTO) 0.5 K/uL (0.8-1.0); NEUTROPHILS # (AUTO) 3.7 K/uL (1.8-7.7); NEUTROPHILS % (AUTO) 54.1 % (42.2-75.2); PLATELET COUNT (AUTO) 321 K/uL (140-450); RED BLOOD CELL COUNT(AUTO) 4.46 MIL/uL (4.20-5.40); RED CELL DISTRIBUTION WIDTH 14.4 % (11.6-13.7); WHITE BLOOD COUNT (AUTO) 6.8 K/uL (4.8-10.8)
[2021-09-14 23:57] LABS: APPEARANCE,URINE CLEAR (CLEAR); BILIRUBIN,URINE 1+ (NEGATIVE); BLOOD, URINE 3+ (NEGATIVE); COLOR,URINE YELLOW (YELLOW); LEUKOCYTE ESTERASE ,URINE NEGATIVE (NEGATIVE); NITRITE, URINE NEGATIVE (NEGATIVE); UGLUCOSE NEGATIVE (NEGATIVE)
[2021-09-15 00:07] LABS: WBC,URINE 0-5 /HPF (0-5)
[2021-09-15 00:13] LABS: ALBUMIN 4.7 g/dL (3.4-5.0); ANION GAP 15.4 (8-16); CARBON DIOXIDE 25.8 mmol/L (21-32); CREATININE 0.9 mg/dL (0.6-1.3); POTASSIUM 3.2 mmol/L (3.5-5.1); TOTAL BILIRUBIN 0.3 mg/dL (0.0-1.0)
[2021-09-15] MEDS ORDERED: traMADol 50 MG TAB PO ONE (00:55)
--- NOTE | 2021-09-15 01:17 | NUR ---
PT TAKEN TO BED 5
[2021-09-15] MEDS ORDERED: DOXY-487 PO (01:23)
[2021-09-15] MEDS ORDERED: DOXYCYCLINE 100 MG CAP PO STA (01:24)
[2021-09-15] MEDS ORDERED: MORPHINE SULFATE 4 MG/ML SYR IVP ONE (01:25)
[2021-09-15] MEDS ORDERED: POTASSIUM CHLORIDE 20% 40 MEQ/15 ML UDC PO ONE (01:30)
[2021-09-15] MEDS ORDERED: METR-435 PO (01:32)
[2021-09-15] MEDS ORDERED: cefTRIAXone 1,000 MG VIAL ONE (01:45)
[2021-09-15] MEDS ORDERED: MORPHINE SULFATE 2 MG/ML SYR ONE (02:45)
[2021-09-15] MEDS ORDERED: MORPHINE SULFATE 2 MG/ML SYR IVP ONE ×2 (02:45→02:50)
[2021-09-15 03:07] VITALS: BP 98/62
--- NOTE | 2021-09-15 03:08 | NUR ---
Patient discharged with v/s stable. Written and verbal after care instructions given and explained. Patient verbalized understanding. Ambulatory with steady gait. All questions addressed prior to discharge. Advised to follow up with PMD.
== END 2021-09-15 03:08 | disposition home or self-care (01) ==
LOC: MED 22:05
DX: N39.0 Urinary tract infection, site not specified (principal); N73.9 Female pelvic inflammatory disease, unspecified; G89.29 Other chronic pain; Z98.890 Other specified postprocedural states; Z79.899 Other long term (current) drug therapy
CPT/HCPCS: 36415; 80053; 81001; 81025; 83605; 83690; 85025; 87086; 96361; 96365; 96375; 99284; J0696; J1885; J2270; J2405; J7030

== ENCOUNTER 2021-10-20 22:13 | Emergency (ER) | payer OTHER ==
[~2021-10-20] VITALS: Ht 154.9 cm; Wt 56.7 kg
[~2021-10-20 22:13] MED LIST changes: +DOXY-487 PO; +METR-435 PO
[2021-10-20 22:30] VITALS: BP 113/95
--- NOTE | 2021-10-21 00:30 | NUR ---
DR THOMPSON EXAMINING PT
[2021-10-21] MEDS ORDERED: MORPHINE SULFATE 4 MG/ML SYR IM ONE (01:05)
--- NOTE | 2021-10-21 01:14 | NUR ---
31 Y/O FEMALE C/O ABD PAIN STARTED TODAY. 06/29 PAIN. TAKING ADVIL AND TYLENOL WITH NO RELIEF. WITH NAUSEA/VOMTING. PT STATES WHENVER SHE STARTS HER PERIOD FEELS LIKE CONTRACTIONS. MEDHX: ENDOMETRIOSIS, GASTRITIS NKA
[2021-10-21 01:30] VITALS: BP 113/95
--- NOTE | 2021-10-21 01:30 | NUR ---
Patient went home with out Written and verbal after care instructions.
== END 2021-10-21 01:30 | disposition left against medical advice (07) ==
LOC: MED 22:13
DX: R10.9 Unspecified abdominal pain (principal); Z79.899 Other long term (current) drug therapy
CPT/HCPCS: 81002; 81025; 96372; 99283; J2270

== ENCOUNTER 2021-11-04 18:31 | Emergency (ER) | payer OTHER ==
[~2021-11-04] VITALS: Ht 157.5 cm; Wt 59.0 kg
[2021-11-04 18:37] VITALS: BP 100/51
--- NOTE | 2021-11-04 18:43 | NUR ---
PT W/C ASSISTED TO BED4.
[2021-11-04] MEDS ORDERED: MORPHINE SULFATE 4 MG/ML SYR IM ONE (18:55)
--- NOTE | 2021-11-04 19:07 | NUR ---
31/F BIB WITH C/O LOWER BACK S/P FALLING TODAY. PATIENT STATES SHE HAS BEEN GETTING OVER A STOMACH FLU AND WAS FEELING DIZZY TODAY, STATES WHEN SHE STOOD UP SHE FELL DOWN, REPORTS 10/10 LOWER BACK PAIN THAT IS SHARP AND WORSENS WITH MOVEMENT. PATIENT DENIES HEAD INJURY OR LOC, DENIES CP, SOB, N/V OR CHILLS.
--- NOTE | 2021-11-04 19:23 | NUR ---
Pt report given to VIKAS HALL. Transfer of care at this time.
[2021-11-04] MEDS ORDERED: ACET-8386 PO (19:31)
[2021-11-04] MEDS ORDERED: IBUP-2213 PO (19:31)
[2021-11-04 19:46] VITALS: BP 100/51
--- NOTE | 2021-11-04 19:46 | NUR ---
Patient discharged with v/s stable. Written and verbal after care instructions given and explained. Patient alert, oriented and verbalized understanding of instructions. Ambulatory with steady gait. All questions addressed prior to discharge. ID band removed. Patient advised to follow up with PMD. Rx of Hydrocodone/Acetaminophen and Ibuprofen given. Patient educated on indication of medication including possible reaction and side effects. Opportunity to ask questions provided and answered. VSS, A/OX4, AMBULATORY, UNLABORED BREATHING, AND CALM DEMEANOR. Pt's spouse is driving pt home.
== END 2021-11-04 19:46 | disposition home or self-care (01) ==
LOC: MED 18:31
DX: M54.50 Low back pain, unspecified (principal); Z98.890 Other specified postprocedural states; Z79.2 Long term (current) use of antibiotics; Z79.891 Long term (current) use of opiate analgesic; Z79.899 Other long term (current) drug therapy
CPT/HCPCS: 96372; 99283; J2270

== ENCOUNTER 2021-11-08 23:56 | Emergency (ER) | payer OTHER ==
[~2021-11-08] VITALS: Ht 154.9 cm; Wt 59.0 kg
[~2021-11-08 23:56] MED LIST changes: +IBUP-2213 PO
[2021-11-09] VITALS: BP 114/69
--- NOTE | 2021-11-09 | NUR ---
TO BED VIA W/C
[2021-11-09] MEDS ORDERED: HYDROcodone/APAP 7.5/325 MG 1 TAB PO ONE (00:35)
--- NOTE | 2021-11-09 01:01 | NUR ---
REPORTS FALLING AND HURTING HER LEFT KNEE, FEELS THOUGH SHE IS HAVING SPASMS. STATING THAT SHE HAS BEEN HAVING PANIC ATTACKS AND INSOMNIA AND NEEDS MEDICATION FOR THIS THIS IS WHAT SHE BELEIVES IS CAUSING THE SPASMS
[2021-11-09] MEDS ORDERED: LORazepam 1 MG TAB PO ONE (01:05)
[2021-11-09] MEDS ORDERED: diphenhydrAMINE 50 MG CAP PO ONE (01:05)
--- NOTE | 2021-11-09 01:24 | NUR ---
BENADRYL NOT ADMINISTERED PER PATIENT REFUSAL. ACCIDENTALY MARKED GIVEN, EDITED TO NOT GIVEN
--- NOTE | 2021-11-09 01:25 | NUR ---
PATIENT STATES SHE GETS RESTLESS WITH BENADRYL
[2021-11-09] MEDS ORDERED: IBUP-2217 PO (01:37)
--- NOTE | 2021-11-09 01:48 | NUR ---
PATIENT CLEARED FOR DISHCARGE AT THIS TIME. ADVISED TO FOLLOW UP WITH PCP AND RETURN IF CONDITION WORSENS. NO OTHER COMPLAINTS OR CONCERNS AT THIS TIME FOLLOWING DISHCARGE TEACHING.
[2021-11-09 01:49] VITALS: BP 116/71
== END 2021-11-09 01:48 | disposition home or self-care (01) ==
LOC: MED 23:56
DX: S89.92XA Unspecified injury of left lower leg, initial encounter (principal); Z79.899 Other long term (current) drug therapy; W19.XXXA Unspecified fall, initial encounter; Y93.89 Activity, other specified; Y92.89 Other specified places as the place of occurrence of the external cause; Y99.8 Other external cause status
CPT/HCPCS: 73562; 99284; Q0092; Q0163

== ENCOUNTER 2021-11-18 12:21 | Emergency (ER) | payer OTHER ==
[~2021-11-18] VITALS: Ht 154.9 cm; Wt 49.9 kg
[~2021-11-18 12:21] MED LIST changes: +IBUP-2217 PO
[2021-11-18 12:24] VITALS: BP 96/68
--- NOTE | 2021-11-18 12:29 | NUR ---
PT W/C ASSISTED TO ER BED 6
--- NOTE | 2021-11-18 13:06 | NUR ---
Pt states she may pass out from pain. SHIVA Hidalgo made aware and at bedside to assess pt
--- NOTE | 2021-11-18 13:08 | NUR ---
DR BOWEN AT BEDSIDE FOR MSE
--- NOTE | 2021-11-18 13:08 | NUR ---
31/F WC TO BED 6, C/O ALL OVER BODY PAIN AND RECTAL PAIN, STATING THIS MORNING WHILE PASSING A BOWEL MOVEMENT PATIENT STATES "I THINK SOMETHING CAME OUT AND I PUSHED IT BACK IN." REPORTS N/V/D. MEDHX: DENIES ALLERGIES: BETH
--- NOTE | 2021-11-18 13:12 | NUR ---
Female Sternman accompanied female patient for Rectal Exam.
[2021-11-18] MEDS ORDERED: KETOROLAC 30 MG/ML VIAL IVP ONE (13:15)
--- NOTE | 2021-11-18 13:45 | NUR ---
PT REFUSING TO GO TO CT AT THIS TIME, STATED "I AM NOT GOING ANYWHERE UNTIL MY PAIN IS GONE" DR BOWEN MADE AWARE
[2021-11-18 13:59] LABS: BASOPHILS # (AUTO) 0.1 K/uL (0.00-0.22); BASOPHILS % (AUTO) 0.8 % (0.0-2.0); EOSINOPHILS # (AUTO) 0.2 K/uL (0-0.4); EOSINOPHILS % (AUTO) 2.7 % (0.0-4.0); HEMATOCRIT 39.3 % (36-48); HEMOGLOBIN 13.1 g/dL (12.0-16.0); LYMPHOCYTES # (AUTO) 2.9 K/uL (2.5-16.5); LYMPHOCYTES % (AUTO) 39.5 % (20.5-51.1); MEAN CORPUSCULAR HEMOGLOBIN 30 pg (27-31); MEAN CORPUSCULAR HGB CONC 33 g/dL (33-37); MEAN CORPUSCULAR VOLUME 89.3 fL (80-94); MONOCYTES # (AUTO) 0.4 K/uL (0.8-1.0); MONOCYTES % (AUTO) 6.2 % (1.7-9.3); NEUTROPHILS # (AUTO) 3.7 K/uL (1.8-7.7); NEUTROPHILS % (AUTO) 50.8 % (42.2-75.2); PLATELET COUNT (AUTO) 320 K/uL (140-450); RED CELL DISTRIBUTION WIDTH 14.8 % (11.6-13.7); WHITE BLOOD COUNT (AUTO) 7.2 K/uL (4.8-10.8)
--- NOTE | 2021-11-18 14:00 | NUR ---
2ND ATTEMPT TO TAKE PT TO CT, PT STILL REFUSING, DEMANDING THAT HER COME BACK TO SPEAK TO THE ERMD, DR BOWEN MADE AWARE.
[2021-11-18 14:13] LABS: APPEARANCE,URINE CLEAR (CLEAR); BILIRUBIN,URINE 1+ (NEGATIVE); BLOOD, URINE NEGATIVE (NEGATIVE); COLOR,URINE YELLOW (YELLOW); LEUKOCYTE ESTERASE ,URINE NEGATIVE (NEGATIVE); NITRITE, URINE NEGATIVE (NEGATIVE); UGLUCOSE NEGATIVE (NEGATIVE)
[2021-11-18] MEDS ORDERED: fentaNYL citrate 0.05 MG/ML VIAL IVP ONE (14:15)
[2021-11-18] MEDS ORDERED: ONDANSETRON 4 MG/2 ML VIAL IVP ONE (14:15)
--- NOTE | 2021-11-18 14:30 | NUR ---
PT WAS MEDICATED PER ORDERS, PT'S PAIN IS NOW TOLERABLE AND SHE STATED "I CAN GO TO CT NOW" CT WAS CALLED TO COME GET PT.
[2021-11-18 14:35] LABS: ALBUMIN 4.5 g/dL (3.4-5.0); ANION GAP 9.9 (8-16); CARBON DIOXIDE 30.3 mmol/L (21-32); CREATININE 0.9 mg/dL (0.6-1.3); POTASSIUM 4.2 mmol/L (3.5-5.1); TOTAL BILIRUBIN 0.3 mg/dL (0.0-1.0)
--- NOTE | 2021-11-18 14:35 | NUR ---
REENA JOHNSON TOOK PT TO CT SCAN VIA ALBERTO
--- NOTE | 2021-11-18 14:50 | NUR ---
PT BACK FROM CT, PT TOLERATED WELL
--- NOTE | 2021-11-18 15:00 | NUR ---
PT ATTEMPTING TO BRING BACK TO BEDSIDE AFTER BEING TOLD HE DID NOT MEET TO HOSPITAL REQUIREMENTS FOR COVID, WAS ESCORTED BACK OUT TO THE LOBBY AND WAS ASKED TO PLEASE REMAIN THERE.
[2021-11-18] MEDS ORDERED: MORPHINE SULFATE 4 MG/ML SYR IM ONE (15:45)
[2021-11-18 16:00] VITALS: BP 100/71
== END 2021-11-18 16:00 | disposition home or self-care (01) ==
LOC: MED 12:21
DX: R10.31 Right lower quadrant pain (principal); R10.32 Left lower quadrant pain; K62.89 Other specified diseases of anus and rectum; Z79.1 Long term (current) use of non-steroidal anti-inflammatories (NSAID); Z79.891 Long term (current) use of opiate analgesic; Z79.2 Long term (current) use of antibiotics; Z79.899 Other long term (current) drug therapy; Z98.51 Tubal ligation status; Z98.890 Other specified postprocedural states; Z87.891 Personal history of nicotine dependence
CPT/HCPCS: 36415; 74176; 80053; 81003; 81025; 85025; 96372; 96374; 96375; 99284; J1885; J2270; J2405; J3010

== ENCOUNTER 2021-12-08 19:38 | Emergency (ER) | payer OTHER ==
[~2021-12-08] VITALS: Ht 154.9 cm; Wt 57.2 kg
[2021-12-08 19:58] VITALS: BP 104/76
--- NOTE | 2021-12-08 20:00 | NUR ---
PATIENT AMBUALTED TO LOBBY WITH STEADY GAIT, UA SAMPLE PROVIDED.
[2021-12-08 20:59] LABS: BASOPHILS % (AUTO) 0.7 % (0.0-2.0); EOSINOPHILS % (AUTO) 0.6 % (0.0-4.0); HEMATOCRIT 39.1 % (36-48); HEMOGLOBIN 13.2 g/dL (12.0-16.0); LYMPHOCYTES # (AUTO) 1.6 K/uL (2.5-16.5); LYMPHOCYTES % (AUTO) 24.7 % (20.5-51.1); MEAN CORPUSCULAR HEMOGLOBIN 30 pg (27-31); MEAN CORPUSCULAR HGB CONC 34 g/dL (33-37); MEAN CORPUSCULAR VOLUME 89.6 fL (80-94); MONOCYTES # (AUTO) 0.4 K/uL (0.8-1.0); MONOCYTES % (AUTO) 6.5 % (1.7-9.3); NEUTROPHILS # (AUTO) 4.4 K/uL (1.8-7.7); NEUTROPHILS % (AUTO) 67.5 % (42.2-75.2); PLATELET COUNT (AUTO) 365 K/uL (140-450); RED BLOOD CELL COUNT(AUTO) 4.37 MIL/uL (4.20-5.40); RED CELL DISTRIBUTION WIDTH 14.4 % (11.6-13.7); WHITE BLOOD COUNT (AUTO) 6.5 K/uL (4.8-10.8)
[2021-12-08 21:20] LABS: ALBUMIN 4.4 g/dL (3.4-5.0); ANION GAP 11.9 (8-16); CREATININE 0.8 mg/dL (0.6-1.3); POTASSIUM 3.9 mmol/L (3.5-5.1); TOTAL BILIRUBIN 0.3 mg/dL (0.0-1.0)
--- NOTE | 2021-12-08 22:00 | NUR ---
SHIVA HOPPER MADE AWARE OF BILATERAL FLANK PAIN, PATIENT STATES PAIN 7/10.
[2021-12-08] MEDS ORDERED: ACETAMINOPHEN EXTRA STRENGTH 500 MG TAB PO ONE (22:05)
[2021-12-08 22:06] LABS: APPEARANCE,URINE CLEAR (CLEAR); BILIRUBIN,URINE NEGATIVE (NEGATIVE); BLOOD, URINE NEGATIVE (NEGATIVE); LEUKOCYTE ESTERASE ,URINE NEGATIVE (NEGATIVE); NITRITE, URINE NEGATIVE (NEGATIVE); UGLUCOSE NEGATIVE (NEGATIVE)
[2021-12-08 22:14] LABS: COLOR,URINE STRAW (YELLOW)
[2021-12-08] MEDS ORDERED: PYR100 PO (22:21)
--- NOTE | 2021-12-08 22:30 | NUR ---
Patient requested to speak to ERMD about results. ERMD made aware, and states will talk to patient.
[2021-12-08] MEDS ORDERED: KETOROLAC 30 MG/ML VIAL IM ONE (22:55)
--- NOTE | 2021-12-08 22:56 | NUR ---
Patient refused to take prn pain medication ordered by SHIVA.
[2021-12-08 23:12] VITALS: BP 112/72
--- NOTE | 2021-12-08 23:12 | NUR ---
Patient discharged with v/s stable. Patient refused to sign Discharge paperwork, patient left with out signing paperwork. Ambulatory with steady gait. All questions addressed prior to discharge. Advised to follow up with PMD.
== END 2021-12-08 23:12 | disposition home or self-care (01) ==
LOC: MED 19:38
DX: R10.9 Unspecified abdominal pain (principal); R50.9 Fever, unspecified; R11.0 Nausea; R30.0 Dysuria; F22 Delusional disorders
CPT/HCPCS: 36415; 80053; 81003; 81025; 85025; 99283; J1885